=== PATIENT | female | born 1985 ===

== ENCOUNTER 2021-05-13 14:45 | Outpatient (RCR) | payer OTHER, SELFPAY ==
--- NOTE | 2021-05-14 14:23 | PC.NURSE ---
late entry 05/13/2021 [id number] IN: 1335 OUT: 1500 History: Mother delivered at [facility] at the gestational age of 36w3d. Complications include GDM, GHTN, Preeclampsia and induction was recommended. Mother states originally breastfed infant every 2-3 hours but for the last few days had been letting stretch to every 4 hours to breastfeed and dad feeding a bottle . Since ICP appt mother has been feeding infant more frequently about every 2 hours as discussed in a phone call to RN on 05/12. Infant weighed 5lbs 10 oz at and now is 5 lbs 10.7 oz. Mother states infant has had 5 wets and stools in the last 24 hours and they are appropriate color and texture for age. Mother has anxiety and her doctor, and mother are supportive and aware. Discussed medications with mother as it pertains to Lactmed. Observations: Infant latches shallow at times. RN suggested adjusting position of infant and waiting for a big open wide gape with optimal latching. was able to maintain latch without discomfort to mother and self detached with no misshape nipple after 15-20 min. Reinforced education regarding milk production and frequency of 10-12 times in a 24 hours period. Mother states she also pumps her breast and feeds 1 oz to infant when needed. Mother offer the other breast to infant and was able to encourage drinking at the breast and maintain latch. On the second feeding (mother waited here for her keys) Pre weight - 2572 Post weight - 2591 with 19 ml ingested on one breast. Instead of offer the second breast mom decided to bottle feed expressed human milk and head on home. Plan: Parents have a plan to continue infant more frequently to increase milk supply and supplementing with formula as needed. Parents voiced understanding of reinforced education, resources and a mom and baby guide was provided for an additional resource on when to call ICP or her provider. Follow - up call : 05/14/21 at 1253 Mother states she has been , pumping and supplementing as needed about every 2-3 hours and was able to get some sleep with dad formula feeding infant. She mentioned since she has been supplementing more infant has been more eager to breastfeed and seems like her normal self .
== END 2021-08-11 23:59 | disposition home or self-care (01) ==
LOC: ANHOBOP 14:45
PROVIDERS: Visit Provider Pediatrics
DX: R63.30 Feeding difficulties, unspecified (principal)
CPT/HCPCS: 99203; G0463